=== PATIENT | female | born 1995 | race African-American/Black ===

== ENCOUNTER 2017-09-09 10:15 | Emergency (ER) | payer OTHER, BC ==
[~2017-09-09] VITALS: Ht 167.6 cm; Wt 75.0 kg
[2017-09-09 10:21] VITALS: BP 133/73; PULSE 59; RESP 16; TEMP 98.5; O2SAT 100
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
[2017-09-09] MEDS ORDERED: NAPR375T4 PO (12:01)
[2017-09-09] MEDS ORDERED: CYCL10TA PO (12:01)
== END 2017-09-09 12:10 | disposition home or self-care (01) ==
LOC: NEPD 10:15
DX: S16.1XXA Strain of muscle, fascia and tendon at neck level, initial encounter (principal); V49.40XA Driver injured in collision with unspecified motor vehicles in traffic accident, initial encounter
CPT/HCPCS: 72050; 99283